=== PATIENT | female | born 1955 | race Two or more races ===

== ENCOUNTER 2024-11-29 09:31 | Emergency (ER) | payer MEDICAID, SELFPAY ==
[2024-11-29 09:46] VITALS: BP 117/75; PULSE 78; RESP 18; TEMP 36.7; O2SAT 99; BMI 26.2
--- NOTE | 2024-11-29 10:52 | XR_ITS ---
Examination: Right ankle 2 views Technique one AP lateral right ankle 2 views Date and time: November 29, 2024 1058 hours INDICATIONS: Injury to the ankle today, ankle pain. FINDINGS: Prominent osteopenia. 5 mm plantar bony calcaneal spur Lateral malleolar soft tissue swelling No ankle fracture or dislocation IMPRESSION: No ankle fracture or dislocation.
--- NOTE | 2024-11-29 10:52 | XR_ITS ---
Examination: Right foot 2 views Technique one AP lateral right foot 2 views Date and time: November 29, 2024 1104 hours INDICATIONS: Injury to the foot this morning, foot pain. FINDINGS: Prominent osteopenia. Soft tissue vascular calcification. No acute fracture IMPRESSION: No acute fracture
[2024-11-29] MEDS: KETOROLAC INJ 60 MG/2 ML VIAL 30 MG IM (11:31)
--- NOTE | 2024-11-29 11:47 | PD.EDANKLE ---
Lower Extremity Injury RME/HPI General Chief Complaint: Ankle/Foot Injury Stated Complaint: CUT ON R) ANKLE ANTERIORLY Time Seen by Provider: 11/29/24 10:29 Source: patient Arrival date/time: 11/29/24 09:31 Mode of arrival: ambulatory Limitations: no limitations RME / HPI RME / HPI Narrative: 69-year-old female tripped over a bottle of juice hurting her right ankle and foot. Also complains of a skin tear that occurred while tripping. MD complaint: ankle injury (Right) and foot injury (Right) Onset (ago): hour(s) Injury: Right: ankle and foot Type of Injury: inversion Place: home Severity: moderate Severity scale (1-10): 4 Relieving factors: nothing Exacerbating factors: weight bearing and movement Context: other (Tripping over a juice bottle) Other symptoms: none Related Data Home Medications ?Medication ?Instructions ?Recorded ?Confirmed Irbesartan/Hydrochlorothiazide * 1 tab PO DAILY ##0 01/10/09 (AVALIDE 150/12.5 *) ibuprofen 100 mg tablet (Motrin) 800 PO TID ##0 01/10/09 Previous Rx's ?Medication ?Instructions ?Recorded naproxen 375 mg tablet,delayed 375 mg PO BID #30 tabs 11/29/24 release Allergies Allergy/AdvReac Type Severity Reaction Status Date / Time Penicillins Allergy Severe Anaphylaxis Verified 11/29/24 09:37 Review of Systems Constitutional Constitutional: Reports system reviewed and no additional complaints, except as documented Eyes Eyes: Reports system reviewed and no additional complaints, except as documented, Denies dry eyes, Denies exophthalmos and Reports floaters Cardiovascular Cardiovascular: Denies chest pain with activity and Denies claudication ED Exam Narrative Physical exam: There is a 6 cm skin tear at the shins. It shape is a crescent. There is no apparent foreign body or debris's was found. General Limitations: Present no limitations General appearance: Present alert and in no apparent distress Head Head exam: Present atraumatic Eye Eye exam: Present normal appearance and EOMI ENT ENT exam: Present normal exam, normal oropharynx and mucous membranes moist Neck Neck exam: Present normal inspection, full ROM and trachea midline Extremities Exam Extremities exam: Present normal inspection and full ROM (Patient continues to have range of motion at the right ankle and she is able to flex and extend all digits of the right ankle. There is soft tissue swelling at the lateral and medial malleolus. Neurovascular is intact and there is no apparent neurofocal deficit present.) Back Exam Back exam: Present normal inspection and full ROM Neurological Exam Neurological exam: Present alert and oriented X3 Psychiatric Psychiatric exam: Present normal affect and normal mood Skin Skin exam: Present warm, dry, intact and normal color Course Course Course Narrative: Patient will have her wound cleaned and then dressed. Note that the skin tear would not benefit from sutures nor Steri-Strips as there appears to be tension at the area of the laceration. The wound will instead be cleansed and then dressed. Quality Measures none Orders Category Date Time Status XR ankle RT 2V Stat Exams 11/29/24 10:52 Completed XR foot AP & LAT LTD RT 2V Stat Exams 11/29/24 10:52 Completed Ketorolac Inj [Toradol Inj] Med 11/29/24 10:53 Discontinued 30 mg IM X1 ONE DONE Vital Signs Vital signs: Vital Signs Temperature 98.0 F 11/29/24 09:46 Pulse Rate 78 11/29/24 09:46 Respiratory Rate 18 11/29/24 09:46 Blood Pressure 117/75 11/29/24 09:46 Pulse Oximetry (%) 99 11/29/24 09:46 Oxygen Delivery Method Room Air 11/29/24 09:46 Pulse ox 99% Extremity Injury, Lower MDM Narrative MDM Narrative:: Patient will have her right ankle dressed and she will be discharged in no apparent distress. Patient has a walker at home so she may use this to ambulate as necessary. She has to change her dressings every other day and she is to keep the wound clean and dry. She is to follow-up for 2-day wound check with primary care physician or she may return here. Patient data External records reviewed:: Other (specify) (NA) Clinical information provided by:: patient Social determinants that could affect healthcare access:: none Patient has the following chronic illnesses:: NA How is presenting disease/condition affected by chronic disease/condition?: no chronic disease (HTN) Evaluation data The following diagnostics were reviewed and interpreted by me:: other (specify) (NA) Lab and/or radiology exams considered but not ordered:: NA Interpretation Summary: NA Medications / Prescriptions Medications or Prescriptions considered but not ordered:: NA Medication administrations:: Medication Administration History Discontinued Medications Ketorolac Tromethamine (Ketorolac Inj 60 Mg/2 Ml Vial) 30 mg IM X1 ONE Stop: 11/29/24 10:54 Last Admin: 11/29/24 11:31 Dose: 30 mg Documented By: NAHEED DONE Consultations Consultation(s) initiated? (list below): No Diagnosis Extremity Injury, Lower Differential Diagnosis: ankle sprain and strain, acute internal derangement of knee, fracture of femur, fracture of hip, puncture wound of foot, fracture of toe and ankle fracture Most likely diagnosis given after review of the tests above:: Right ankle sprain Admission Indicated Admission indicated?: not indicated Explain why admission is indicated or not indicated:: N/A Admission Request Was there a request for admission?: No Admission Attestation Admission request attestation: N/A Disposition Plan Disposition Plan: Discharge Discharge Attestation Discharge Attestation: The patient and all family members were given an opportunity to ask questions and understood the discharge instructions. Discharge instructions specifically effects, indications for sooner follow up or return to the emergency department, and the expected course of current diagnosis. Patient condition: Stable Discharge Plan Plan Patient Disposition: HOME (Self Care) Discharge Disposition comment: N/A Patient condition on transfer: Stable Prescriptions/Referrals Prescriptions/Med Rec: New naproxen 375 mg tablet,delayed release (DR/EC) 375 mg PO BID Qty: 30 0RF No Action ibuprofen [Motrin] 100 MG tablet 800 PO TID Qty: 0 Irbesartan/Hydrochlorothiazide * (AVALIDE 150/12.5 *) 1 TAB tablet 1 tab PO DAILY Qty: 0 Problem List Clinical Impression: Ankle sprain and strain Patient/Caregiver Discharge Instructions Discharge Activity: activity as tolerated Print Language: Finnish Stand Alone Forms: Ana Paula Award Info., Patient Portal Info Letter PA/DENTIST/OWNER Supervising Physician PA/DENTIST/OWNER Supervising Physician: MYRON
[2024-11-29] MEDS: DIPHTH,PERTUSS(ACELL),TET VAC 0.5 ML SYR- ADULT IMi (12:04)
== END 2024-11-29 12:20 | disposition home or self-care (01) ==
LOC: SERX 11:59
PROVIDERS: Emergency Provider Physician Assistant; PCP Physician Assistant
DX: S93.401A Sprain of unspecified ligament of right ankle, initial encounter (principal); W01.0XXA Fall on same level from slipping, tripping and stumbling without subsequent striking against object, initial encounter; Z23 Encounter for immunization
CPT/HCPCS: 73600; 73620; 90471; 90715; 96372; 99283; J1885

== ENCOUNTER → 2024-12-20 | Outpatient (CLI) | payer MEDICAID, SELFPAY | END | disposition home or self-care (01) | PROVIDERS: PCP Physician Assistant; Referring Provider Physician Assistant; Visit Provider Student in an Organized Health Care Education/Training Program | DX: S81.801A Unspecified open wound, right lower leg, initial encounter (principal); X58.XXXA Exposure to other specified factors, initial encounter; I10 Essential (primary) hypertension; D64.9 Anemia, unspecified; M06.9 Rheumatoid arthritis, unspecified; E11.69 Type 2 diabetes mellitus with other specified complication; Z79.84 Long term (current) use of oral hypoglycemic drugs | CPT/HCPCS: 11042; 99213; A9270; G0463 ==

== ENCOUNTER → 2024-12-21 | Outpatient (CLI) | payer MEDICAID, SELFPAY ==
--- NOTE | 2024-12-21 09:14 | XR_ITS ---
Examination: Tibia-Fibula, right , 2 views Technique: Tibia-fibula AP lateral 2 views Date and time of exam: December 21, 2024 0939 hours INDICATIONS: Nonhealing wound lower leg one month, diabetic FINDINGS: Prominent osteopenia. No fracture. No patricia cortical bone destruction. No foreign body IMPRESSION: No patricia cortical bone destruction
== END | disposition home or self-care (01) ==
PROVIDERS: PCP Physician Assistant; Referring Provider Student in an Organized Health Care Education/Training Program; Visit Provider Student in an Organized Health Care Education/Training Program
DX: E11.622 Type 2 diabetes mellitus with other skin ulcer (principal); S81.801A Unspecified open wound, right lower leg, initial encounter; X58.XXXA Exposure to other specified factors, initial encounter
CPT/HCPCS: 73590

== ENCOUNTER → 2024-12-27 | Outpatient (CLI) | payer MEDICAID, SELFPAY | END | disposition home or self-care (01) | LOC: SWHD 09:55 | PROVIDERS: PCP Physician Assistant; Referring Provider Physician Assistant; Visit Provider Student in an Organized Health Care Education/Training Program | DX: S81.801A Unspecified open wound, right lower leg, initial encounter (principal); X58.XXXA Exposure to other specified factors, initial encounter; M06.9 Rheumatoid arthritis, unspecified; Z79.84 Long term (current) use of oral hypoglycemic drugs; D64.9 Anemia, unspecified; I10 Essential (primary) hypertension | CPT/HCPCS: 97597; A9270 ==

== ENCOUNTER → 2025-01-03 | Outpatient (CLI) | payer MEDICAID, SELFPAY | END | disposition home or self-care (01) | PROVIDERS: PCP Physician Assistant; Referring Provider Physician Assistant; Visit Provider Student in an Organized Health Care Education/Training Program | DX: S81.801A Unspecified open wound, right lower leg, initial encounter (principal); X58.XXXA Exposure to other specified factors, initial encounter; E11.621 Type 2 diabetes mellitus with foot ulcer; L97.913 Non-pressure chronic ulcer of unspecified part of right lower leg with necrosis of muscle; M06.9 Rheumatoid arthritis, unspecified; Z79.84 Long term (current) use of oral hypoglycemic drugs; D64.9 Anemia, unspecified; I10 Essential (primary) hypertension | CPT/HCPCS: 97597; A9270 ==

== ENCOUNTER → 2025-01-12 | Outpatient (CLI) | payer MEDICAID, SELFPAY | END | disposition home or self-care (01) | LOC: SWHD 09:20 | PROVIDERS: PCP Physician Assistant; Referring Provider Physician Assistant; Visit Provider Surgery | DX: S81.801A Unspecified open wound, right lower leg, initial encounter (principal); X58.XXXA Exposure to other specified factors, initial encounter; E11.621 Type 2 diabetes mellitus with foot ulcer; L97.913 Non-pressure chronic ulcer of unspecified part of right lower leg with necrosis of muscle; M06.9 Rheumatoid arthritis, unspecified; Z79.84 Long term (current) use of oral hypoglycemic drugs; I10 Essential (primary) hypertension | CPT/HCPCS: 11042; 11045; A9270 ==

== ENCOUNTER → 2025-01-15 | Outpatient (CLI) | payer MEDICAID, SELFPAY | END | disposition home or self-care (01) | LOC: SWHD 10:41 | PROVIDERS: PCP Physician Assistant; Referring Provider Physician Assistant; Visit Provider Student in an Organized Health Care Education/Training Program | DX: S81.801A Unspecified open wound, right lower leg, initial encounter (principal); X58.XXXA Exposure to other specified factors, initial encounter; E11.621 Type 2 diabetes mellitus with foot ulcer; L97.912 Non-pressure chronic ulcer of unspecified part of right lower leg with fat layer exposed; M06.9 Rheumatoid arthritis, unspecified; I10 Essential (primary) hypertension; Z79.84 Long term (current) use of oral hypoglycemic drugs | CPT/HCPCS: 97597; A9270 ==

== ENCOUNTER → 2025-01-19 | Outpatient (CLI) | payer MEDICAID, SELFPAY | END | disposition home or self-care (01) | PROVIDERS: PCP Physician Assistant; Referring Provider Physician Assistant; Visit Provider Surgery | DX: S81.801A Unspecified open wound, right lower leg, initial encounter (principal); X58.XXXA Exposure to other specified factors, initial encounter; E11.621 Type 2 diabetes mellitus with foot ulcer; L97.912 Non-pressure chronic ulcer of unspecified part of right lower leg with fat layer exposed; Z79.84 Long term (current) use of oral hypoglycemic drugs; I10 Essential (primary) hypertension | CPT/HCPCS: 11042; A9270 ==

== ENCOUNTER → 2025-01-26 | Outpatient (CLI) | payer MEDICAID, SELFPAY | END | disposition home or self-care (01) | LOC: SWHD 08:14 | PROVIDERS: PCP Physician Assistant; Referring Provider Physician Assistant; Visit Provider Student in an Organized Health Care Education/Training Program | DX: S81.801A Unspecified open wound, right lower leg, initial encounter (principal); X58.XXXA Exposure to other specified factors, initial encounter; E11.621 Type 2 diabetes mellitus with foot ulcer; L97.912 Non-pressure chronic ulcer of unspecified part of right lower leg with fat layer exposed; Z79.84 Long term (current) use of oral hypoglycemic drugs; I10 Essential (primary) hypertension | CPT/HCPCS: 97597; A9270 ==

== ENCOUNTER → 2025-02-02 | Outpatient (CLI) | payer MEDICAID, SELFPAY | END | disposition home or self-care (01) | LOC: SWHD 07:59 | PROVIDERS: PCP Physician Assistant; Referring Provider Physician Assistant; Visit Provider Physician Assistant | DX: S81.801A Unspecified open wound, right lower leg, initial encounter (principal); X58.XXXA Exposure to other specified factors, initial encounter; E11.621 Type 2 diabetes mellitus with foot ulcer; L97.912 Non-pressure chronic ulcer of unspecified part of right lower leg with fat layer exposed; Z79.84 Long term (current) use of oral hypoglycemic drugs; I10 Essential (primary) hypertension | CPT/HCPCS: 29581; A9270 ==

== ENCOUNTER → 2025-02-09 | Outpatient (CLI) | payer OTHER, SELFPAY | END | disposition home or self-care (01) | LOC: SWHD 08:55 | PROVIDERS: PCP Physician Assistant; Referring Provider Physician Assistant; Visit Provider Student in an Organized Health Care Education/Training Program | DX: S81.801A Unspecified open wound, right lower leg, initial encounter (principal); X58.XXXA Exposure to other specified factors, initial encounter; E11.621 Type 2 diabetes mellitus with foot ulcer; L97.912 Non-pressure chronic ulcer of unspecified part of right lower leg with fat layer exposed; Z79.84 Long term (current) use of oral hypoglycemic drugs; I10 Essential (primary) hypertension | CPT/HCPCS: 29581; A9270 ==

== ENCOUNTER → 2025-02-16 | Outpatient (CLI) | payer OTHER, SELFPAY | END | disposition home or self-care (01) | LOC: SWHD 08:55 | PROVIDERS: PCP Physician Assistant; Referring Provider Physician Assistant; Visit Provider Surgery | DX: S01.90XA Unspecified open wound of unspecified part of head, initial encounter (principal); X58.XXXA Exposure to other specified factors, initial encounter; E11.621 Type 2 diabetes mellitus with foot ulcer; L97.912 Non-pressure chronic ulcer of unspecified part of right lower leg with fat layer exposed; Z79.84 Long term (current) use of oral hypoglycemic drugs; I10 Essential (primary) hypertension | CPT/HCPCS: 99213; A9270; G0463 ==

== ENCOUNTER → 2025-02-23 | Outpatient (CLI) | payer OTHER, SELFPAY | END | disposition home or self-care (01) | LOC: SWHD 08:57 | PROVIDERS: PCP Physician Assistant; Referring Provider Physician Assistant; Visit Provider Physician Assistant | DX: S01.80XA Unspecified open wound of other part of head, initial encounter (principal); X58.XXXA Exposure to other specified factors, initial encounter; E11.621 Type 2 diabetes mellitus with foot ulcer; L97.912 Non-pressure chronic ulcer of unspecified part of right lower leg with fat layer exposed; Z79.84 Long term (current) use of oral hypoglycemic drugs; I10 Essential (primary) hypertension | CPT/HCPCS: 29581; A9270 ==

== ENCOUNTER → 2025-03-02 | Outpatient (CLI) | payer OTHER, SELFPAY | END | disposition home or self-care (01) | LOC: SWHD 08:51 | PROVIDERS: PCP Physician Assistant; Referring Provider Physician Assistant; Visit Provider Surgery | DX: S01.90XA Unspecified open wound of unspecified part of head, initial encounter (principal); X58.XXXA Exposure to other specified factors, initial encounter; E11.621 Type 2 diabetes mellitus with foot ulcer; L97.912 Non-pressure chronic ulcer of unspecified part of right lower leg with fat layer exposed; Z79.84 Long term (current) use of oral hypoglycemic drugs; I10 Essential (primary) hypertension | CPT/HCPCS: 11042; A9270 ==

== ENCOUNTER → 2025-03-09 | Outpatient (CLI) | payer OTHER, SELFPAY | END | disposition home or self-care (01) | LOC: SWHD 08:35 | PROVIDERS: PCP Physician Assistant; Referring Provider Physician Assistant; Visit Provider Surgery | DX: S01.90XA Unspecified open wound of unspecified part of head, initial encounter (principal); X58.XXXA Exposure to other specified factors, initial encounter; E11.621 Type 2 diabetes mellitus with foot ulcer; L97.912 Non-pressure chronic ulcer of unspecified part of right lower leg with fat layer exposed; Z79.84 Long term (current) use of oral hypoglycemic drugs; I10 Essential (primary) hypertension | CPT/HCPCS: 29580; A9270 ==

== ENCOUNTER → 2025-03-16 | Outpatient (CLI) | payer OTHER, SELFPAY | END | disposition home or self-care (01) | LOC: SWHD 08:47 | PROVIDERS: PCP Physician Assistant; Referring Provider Physician Assistant; Visit Provider Physician Assistant | DX: I87.311 Chronic venous hypertension (idiopathic) with ulcer of right lower extremity (principal); E11.622 Type 2 diabetes mellitus with other skin ulcer; S81.801A Unspecified open wound, right lower leg, initial encounter; X58.XXXA Exposure to other specified factors, initial encounter; L97.912 Non-pressure chronic ulcer of unspecified part of right lower leg with fat layer exposed; Z79.84 Long term (current) use of oral hypoglycemic drugs; I10 Essential (primary) hypertension | CPT/HCPCS: 29581; A9270 ==

== ENCOUNTER → 2025-03-23 | Outpatient (CLI) | payer OTHER, SELFPAY | END | disposition home or self-care (01) | LOC: SWHD 08:52 | PROVIDERS: PCP Physician Assistant; Referring Provider Physician Assistant; Visit Provider Surgery | DX: I87.311 Chronic venous hypertension (idiopathic) with ulcer of right lower extremity (principal); E11.622 Type 2 diabetes mellitus with other skin ulcer; S81.801A Unspecified open wound, right lower leg, initial encounter; X58.XXXA Exposure to other specified factors, initial encounter; L97.912 Non-pressure chronic ulcer of unspecified part of right lower leg with fat layer exposed; Z79.84 Long term (current) use of oral hypoglycemic drugs; I10 Essential (primary) hypertension | CPT/HCPCS: 11042; A9270 ==

== ENCOUNTER → 2025-03-30 | Outpatient (CLI) | payer OTHER, SELFPAY | END | disposition home or self-care (01) | LOC: SWHD 08:46 | PROVIDERS: PCP Physician Assistant; Referring Provider Physician Assistant; Visit Provider Surgery | DX: I87.311 Chronic venous hypertension (idiopathic) with ulcer of right lower extremity (principal); E11.622 Type 2 diabetes mellitus with other skin ulcer; S81.801A Unspecified open wound, right lower leg, initial encounter; X58.XXXA Exposure to other specified factors, initial encounter; L97.912 Non-pressure chronic ulcer of unspecified part of right lower leg with fat layer exposed; Z79.84 Long term (current) use of oral hypoglycemic drugs; I10 Essential (primary) hypertension | CPT/HCPCS: 29581 ==

== ENCOUNTER → 2025-04-13 | Outpatient (CLI) | payer OTHER, SELFPAY | END | disposition home or self-care (01) | LOC: SWHD 08:41 | PROVIDERS: PCP Physician Assistant; Referring Provider Physician Assistant; Visit Provider Surgery | DX: I87.311 Chronic venous hypertension (idiopathic) with ulcer of right lower extremity (principal); E11.622 Type 2 diabetes mellitus with other skin ulcer; S81.801A Unspecified open wound, right lower leg, initial encounter; X58.XXXA Exposure to other specified factors, initial encounter; L97.912 Non-pressure chronic ulcer of unspecified part of right lower leg with fat layer exposed; Z79.84 Long term (current) use of oral hypoglycemic drugs; I10 Essential (primary) hypertension | CPT/HCPCS: 29581 ==

== ENCOUNTER → 2025-04-20 | Outpatient (CLI) | payer OTHER, SELFPAY | END | disposition home or self-care (01) | LOC: SWHD 08:49 | PROVIDERS: PCP Physician Assistant; Referring Provider Physician Assistant; Visit Provider Surgery | DX: I87.311 Chronic venous hypertension (idiopathic) with ulcer of right lower extremity (principal); E11.622 Type 2 diabetes mellitus with other skin ulcer; S81.801A Unspecified open wound, right lower leg, initial encounter; X58.XXXA Exposure to other specified factors, initial encounter; L97.912 Non-pressure chronic ulcer of unspecified part of right lower leg with fat layer exposed; Z79.84 Long term (current) use of oral hypoglycemic drugs; I10 Essential (primary) hypertension | CPT/HCPCS: 99212; A9270; G0463 ==

== ENCOUNTER → 2025-04-27 | Outpatient (CLI) | payer OTHER, SELFPAY | END | disposition home or self-care (01) | LOC: SWHD 08:48 | PROVIDERS: PCP Physician Assistant; Referring Provider Physician Assistant; Visit Provider Surgery | DX: I87.311 Chronic venous hypertension (idiopathic) with ulcer of right lower extremity (principal); E11.622 Type 2 diabetes mellitus with other skin ulcer; S81.801A Unspecified open wound, right lower leg, initial encounter; X58.XXXA Exposure to other specified factors, initial encounter; L97.912 Non-pressure chronic ulcer of unspecified part of right lower leg with fat layer exposed; Z79.84 Long term (current) use of oral hypoglycemic drugs; I10 Essential (primary) hypertension | CPT/HCPCS: 99212; G0463 ==